=== PATIENT | female | born 1935 | race African-American/Black ===

== ENCOUNTER 2019-10-10 09:18 | Outpatient (CLI) | payer MEDICARE ==
[2019-10-10 10:11] LABS: Blood Urea Nitrogen 12 mg/dL (7-17)
--- NOTE | 2019-10-10 14:47 | Cat Scan Report ---
CTA of the abdomen and pelvis INDICATION: I71.4 - Abdominal aortic aneurysm, without rupture. TECHNIQUE: All CT scans at this location are performed using the following dose modulation technique: Automated exposure control. Helical slices were obtained through the abdomen and pelvis following the administr ation of 100 cc of Omnipaque 350. Axial, sagittal, and coronal MIP reformatted images were obtained COMPARISON: None available. FINDINGS: Aorta: The abdominal aorta is normal in diameter. Atherosclerotic calcifications are noted in the aorta, mes enteric vessels and proximal renal arteries more so on the right left. 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 There is an approximate 40% diameter reducti on in the proximal right renal artery. There is aneurysmal dilatation of the right common iliac artery which measures approximately 19 mm in diameter. There is occlusion of the left common iliac artery and there is significant atheroscleroti c calcification in the internal iliac arteries or so on the left right. The distal left common iliac artery reconstitutes. ABDOMEN: The heart is enlarged. The liver, spleen, pancreas, adrenal glands, and small bowel show no acute abnormality. There are bilateral renal cysts. Small subcentimeter hyperdense cyst in the right kidney and a 17 mm hyperdense cyst in the mid left kidney Pelvis: Vascular calcifications are noted. There is no obstruction or inflammation. There are no abno rmal fluid collections. On review of bone windows, no acute osseous abnormalities are seen IMPRESSION: 1. There is aneurysmal dilatation of the right common iliac artery. There is occlusion of the left co mmon iliac artery. There is atherosclerotic disease. 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 Benign-appearing cysts are noted in the kidneys. Signer Name: Primo Meadows MD Signed: 10/10/2019 2:43 PM Workstation Name: [id number]
== END 2019-10-10 09:19 | disposition home or self-care (01) ==
LOC: CT 09:18
PROVIDERS: ATTEND Radiology Diagnostic Radiology
DX: I25.10 Atherosclerotic heart disease of native coronary artery without angina pectoris (principal); I77.4 Celiac artery compression syndrome; K55.1 Chronic vascular disorders of intestine; I72.3 Aneurysm of iliac artery; I74.5 Embolism and thrombosis of iliac artery; I51.7 Cardiomegaly; N28.1 Cyst of kidney, acquired; I71.4 Abdominal aortic aneurysm, without rupture
CPT/HCPCS: 36415; 74174; 82565; 84520; Q9967

== ENCOUNTER 2019-10-31 09:10 | Outpatient (CLI) | payer MEDICARE ==
[2019-10-31 09:57] LABS: Blood Urea Nitrogen 14 mg/dL (7-17)
--- NOTE | 2019-11-01 11:45 | Magnetic Resonance Report ---
MRI Pelvis with and without contrast MRA Abdomen and Pelvis with and without contrast INDICATION: M79.9Soft tissue disorder, unspecified. Additional history: Right common iliac artery aneurysm and le ft common iliac artery occlusion seen on recent CTA. TECHNIQUE: Multiplanar, multisequence MR images were obtained through the abdomen and pelvis before and after in jection of 20 cc MultiHance contrast. COMPARISON: CTA abdomen and pelvis with contrast from 10/10/2019. FINDINGS: Vascular findings: Abdominal aorta: No aneurysm is seen. Generalized luminal irregularity is consistent with atheroscler osis. No significant stenosis/obstruction or dissection is identified. Celiac trunk: No significant abnormality is visualized. SMA: No significant abnormality is visualized. JOSE ARMANDO: No significant abnormality is visualized. Renal arteries: The previously described stenosis of the right renal artery is not clearly seen. No a dditional significant abnormality. Right iliac arteries: Stable aneurysm of the right common iliac artery measuring 1.8 cm. No additiona l significant abnormality. Left iliac arteries: Stable occlusion of the left common iliac artery with distal reconstitution of f low. No additional significant abnormality. Femoral arteries: No significant abnormality. Nonvascular findings: GI tract: No significant abnormality. Peritoneum: No free fluid or fluid collection. Lymph nodes: No significant adenopathy. Urinary bladder: No significant abnormality. Reproductive organs: No significant abnormality. Kidneys: Stable bilateral renal cysts. Bones: No significant abnormality. Additional findings: None. IMPRESSION: 1. Stable right common iliac artery aneurysm and occlusion of the left common iliac artery compared t o the recent CTA. No new vascular abnormality. 2. Stable bilateral renal cysts. No additional significant nonvascular abnormality. Signer Name: Renato Cano MD Signed: 10/31/2019 12:33 PM Workstation Name: [email or web address]
== END 2019-10-31 09:11 | disposition home or self-care (01) ==
LOC: MRI 09:10
PROVIDERS: ATTEND Radiology Diagnostic Radiology
DX: N28.1 Cyst of kidney, acquired (principal); M79.9 Soft tissue disorder, unspecified
CPT/HCPCS: 36415; 72197; 82565; 84520; A9577; C8902; 74185

== ENCOUNTER 2019-11-03 06:28 | Day surgery (SDC) | payer MEDICARE ==
[2019-11-03 07:18] LABS: Hematocrit 37.3 % (30.3-42.9); Hemoglobin 12.5 gm/dl (10.1-14.3); Mean Corpuscular HGB Conc 34 % (30-34); Mean Corpuscular Volume 86 fl (79-97); Platelet Count 255 K/mm3 (140-440); Red Blood Count 4.35 M/mm3 (3.65-5.03)
[2019-11-03 07:28] LABS: INR 0.85 (0.87-1.13)
[2019-11-03 07:32] LABS: Partial Thromboplastin Time 30.8 Sec. (24.2-36.6)
[2019-11-03 07:42] LABS: BUN/Creatinine Ratio 24; Blood Urea Nitrogen 17 mg/dL (7-17); Calcium 9.5 mg/dL (8.4-10.2); Hemolysis Index 52
[2019-11-03] MEDS: SODIUM CHLORIDE 0.9% 500 ML 500 ML IV SCH ×2 (07:59→11:08)
[2019-11-03] MEDS ORDERED: HEPARIN/NS 5000 UNIT/500ML 1,000 ML IR ONE (11:04)
[2019-11-03] MEDS: MIDAZOLAM 2 MG/2 ML INJ ONE ×2 (11:15→12:40)
[2019-11-03] MEDS: fentaNYL 100 MCG/2 ML INJ ONE ×2 (11:15→12:21)
[2019-11-03] MEDS: LIDOCAINE (2%) 20 MG/1 ML VIAL 20 ML MDV INFILTRATI ONE ×2 (11:18→11:21)
[2019-11-03] MEDS: HEPARIN 10,000 UNITS/10 ML VIAL ONE ×3 (11:40→13:09)
[2019-11-03] MEDS ORDERED: HEPARIN/NS 5000 UNIT/500ML 500 ML IR ONE ×2 (12:07→13:01)
--- NOTE | 2019-11-03 13:56 | Short Stay Summary ---
Short Stay Documentation Date of service: 11/03/19 - History Principal diagnosis: Right common iliac artery aneurysm, left common iliac artery occlusion Past Medical History: PVD, other (Venous hypertension) Social history: no significant social history - Allergies and Medications Current Medications: Allergies No Known Allergies Allergy (Unverified 03/14/14 16:25) Home Medications Medication Instructions Recorded Confirmed Last Taken Type Baclofen [Lioresal] 0.5 mg PO PRN PRN 11/03/19 11/03/19 Unknown History Ezetimibe [Zetia] 10 mg PO QHS 11/03/19 11/03/19 11/02/19 History Memantine HCl 5 mg PO BID 11/03/19 11/03/19 Unknown History Pravastatin [Pravachol] 20 mg PO QHS 11/03/19 11/03/19 11/02/19 History atenoloL [Tenormin] 25 mg PO DAILY 11/03/19 11/03/19 11/03/19 05:00 History methIMAzole [Tapazole] 10 mg PO QAM 11/03/19 11/03/19 11/02/19 History Active Medications Sodium Chloride (Nacl 0.9% 500 Ml) 500 mls @ 50 mls/hr IV DIRECT LATRICE Last Admin: 11/03/19 11:08 Dose: 50 mls/hr Documented by: - Physical exam General appearance: no acute distress HEENT: Atraumatic Lungs: Normal air movement Breasts: deferred Heart: Regular rate Gastrointestinal: normal Female Genitourinary: deferred Rectal Exam: deferred Extremities: Full ROM - Brief post op/procedure progress note Date of procedure: 11/03/19 Pre-op diagnosis: PVD with claudication, iliac artery aneurysm Post-op diagnosis: same Procedure: Revascularization of bilateral common iliac arteries Anesthesia: local Surgeon: ANNA LANG Estimated blood loss: minimal Pathology: none Condition: stable - Disposition Condition at discharge: Good Disposition: [id number] TO HOME OR SELFCARE Short Stay Discharge Plan Activity: advance as tolerated Weight Bearing Status: Weight Bear as Tolerated Diet: regular Wound: keep clean and dry, per your surgeon's advice Follow up with: JUDY FOREMAN MD [Primary Care Provider] - 7 Days
--- NOTE | 2019-11-03 14:05 | Operative Report ---
Operative Report Operative Report: Exam: Right common iliac artery aneurysm repair, left common iliac artery revascularization Clinical indication: Patient with a history of right common iliac artery aneurysm, left common iliac artery occlusion, peripheral vascular disease with claudication Date: 11/03/2019 Procedure: Following an explanation of the risk, benefits and alternatives; written informed consent was obtained. The patient was brought to the angiographic suite and placed in supine position on the examination table. Initial ultrasound evaluation of her groins demonstrated patent common femoral arteries bilaterally. The patient's bilateral groins were prepped and draped in usual sterile fashion. 1% lidocaine was used for anesthesia. Under ultrasound guidance, the right common femoral artery was cannulated with a 7 cm 21-gauge needle. A 0.018 guidewire was advanced centrally. The needle was removed and a micro-sheath placed. The 0.018 guidewire was exchanged for a 0.035 guidewire and the micro sheath exchange for a 5 [place] vascular sheath. The 0.035 guidewire was advanced under fluoroscopy into the distal abdominal aorta. A vertebral catheter was advanced over the guidewire and the guidewire removed. Angiography was performed. This demonstrates diffuse atherosclerotic calcification involving the distal abdominal aorta, complete occlusion of left common iliac artery, aneurysmal dilatation of the right common iliac artery Access to the left proximal femoral artery was obtained in a similar fashion as above and an additional 5 [place] sheath placed. Vertebral catheter and 0.035 guidewire were advanced to the area of occlusion in the distal left common iliac artery. The occlusion was crossed using a V 18 guidewire. A variety of catheters were utilized in an attempt to cross the lesion. Ultimately, sequential balloon dilatation was performed using a 2 mm balloon, 3 mm balloon and 4 mm balloon which allowed a 5 [place] vertebral catheter to cross the lesion. A 0.035 guidewire was advanced into the abdominal aorta. The right sheath was upsized over the guidewire to an 8 [place] sheath, the left sheath was upsized over the guidewire to a 7 [place] sheath. Following appropriate anatomic localization using angiography, a 7 mm x 59 mm VBX stent was advanced through the right sheath to extend from the distal abdominal aorta below the level of the JOSE ARMANDO to the distal aspect of the aneurysm sac. A 7 mm x 59 mm VBX was then advanced through the left sheath. The stent would not advance across the lesion. The stent was removed and a 4 mm balloon advanced and deployed across the lesion. As the balloon deflated, the sheath was advanced forward to just proximal to the focal lesion at the ostium of the left common iliac artery. The balloon was removed and the stent was then manipulated across the lesion to extend from the distal abdominal aorta into the distal common iliac artery on the left. Once the stents were in position, the stents were deployed in kissing fashion. The balloons were insufflated to nominal atmospheres the distal end of the right stent was dilated with a 12 mm balloon. I discussed some degree of foreshortening and an additional 11 mm x 39 mm VBX was advanced through the right sheath to extend the stent on the right. The stent was seated using a 12 mm balloon. Post and placement imaging demonstrated brisk flow throughout both common iliac arteries with complete exclusion of the aneurysm sac on the right. Hemostasis was achieved in the left groin using Angio-Seal arterial closure device. This device did not take and ultimately, pressure was held. A pressure dressing was applied. Hemostasis was achieved in the right groin using an Angio-Seal arterial closure device. A sterile pressure dressing was applied. The patient tolerated the procedure well. There were no immediate postprocedure complications. Conscious sedation was performed under the guidance of radiologic nursing. Continuous cardiopulmonary monitoring was utilized. Impression: Aortogram with bilateral lower extremity angiography demonstrating diffuse atherosclerotic disease involving the distal abdominal aorta, aneurysmal dilatation of the right common iliac artery and complete occlusion of the left common iliac artery. The origin of branch vessels were also identified including the JOSE ARMANDO. 2) Exclusion of the right common iliac artery aneurysm using a 7 mm x 59 mm VBX proximally and a 11 mm x 39 mm VBX distally. The stent was seated proximally using the 7 mm balloon and distally using a 12 mm balloon. 3) Revascularization of the left common iliac artery using sequential balloon dilatation and placement of a 7 mm x 59 mm VBX stent insufflated to nominal atmo spheres. 4) Postintervention imaging demonstrated brisk flow throughout the pelvis and into the lower extremities bilaterally.
[2019-11-03] MEDS ORDERED: oxyCODONE /ACETAMINOPHEN 5-325MG TAB PO ONE (14:11)
[2019-11-03] MEDS ORDERED: CLOPIDOGREL 75 MG TAB PO SCH (14:36)
[2019-11-03] MEDS ORDERED: ONDANSETRON 4 MG/2 ML INJ IV ONE (17:00)
[2019-11-03 17:29] VITALS: BP 137/65
== END 2019-11-03 18:13 | disposition home or self-care (01) ==
LOC: CATHLABREC 06:28
PROVIDERS: ATTEND Radiology Diagnostic Radiology
DX: I70.213 Atherosclerosis of native arteries of extremities with intermittent claudication, bilateral legs (principal); I72.3 Aneurysm of iliac artery; E78.00 Pure hypercholesterolemia, unspecified; I10 Essential (primary) hypertension; M19.90 Unspecified osteoarthritis, unspecified site; E03.9 Hypothyroidism, unspecified; Z98.890 Other specified postprocedural states; Z90.49 Acquired absence of other specified parts of digestive tract; Z91.81 History of falling; Z79.899 Other long term (current) drug therapy; Z98.41 Cataract extraction status, right eye; Z98.42 Cataract extraction status, left eye; Z86.73 Personal history of transient ischemic attack (TIA), and cerebral infarction without residual deficits; Z79.01 Long term (current) use of anticoagulants
CPT/HCPCS: 36415; 37221; 75716; 80048; 85027; 85610; 85730; 99156; 99157; C1725; C1760; C1769; C1874; C1887; C1894; J1644; J2250; J2405; J3010; J7040; 96374